=== PATIENT | male | born 1955 | race Caucasian/White ===

== ENCOUNTER 2016-10-03 08:06 | Emergency (ER) | payer BC ==
[2016-10-03 08:33] VITALS: BP 120/75
--- NOTE | 2016-10-03 08:53 | UC ---
Skin Complaint HPI - HPI Summary HPI Summary: left hand bee sting last night. Increased sweelling today this morning. no systemic symptoms. - History of Current Complaint Chief Complaint: UCSkin Time Seen by Provider: 10/03/16 08:41 Stated Complaint: LEFT HAND BEE STING Hx Obtained From: Patient Onset/Duration: Gradual Onset Skin Exposure Onset/Duration: Hours Ago Timing: Constant Onset Severity: Mild Current Severity: Moderate Location: Discrete Aggravating: Nothing Alleviating: Nothing Associated Signs & Symptoms: Positive: Joint Swelling - Allergy/Home Medications Allergies/Adverse Reactions: Allergies Allergy/AdvReac Type Severity Reaction Status Date / Time No Known Allergies Allergy Verified 10/03/16 08:13 Home Medications: Home Medications NK [No Home Medications Reported] 10/03/16 [History Confirmed 10/03/16] Review of Systems Skin: Rash All Other Systems Reviewed And Are Negative: Yes PMH/Surg Hx/FS Hx/Imm Hx Previously Healthy: Yes - Surgical History Surgical History: Yes Surgery Procedure, Year, and Place: TONSILLECTOMY - Family History Known Family History: Positive: Other - no related bee sting history. - Social History Occupation: Employed Full-time Lives: With Family Alcohol Use: Weekly Substance Use Type: None Smoking Status (MU): Never Smoked Tobacco Physical Exam Triage Information Reviewed: Yes Appearance: Well-Appearing, No Pain Distress, Well-Nourished Vital Signs: Initial Vital Signs Temp 97.8 F 10/03/16 08:13 Pulse 59 10/03/16 08:13 Resp 16 10/03/16 08:13 BP 120/75 10/03/16 08:13 Pulse Ox 99 10/03/16 08:13 Vital Signs Reviewed: Yes Eye Exam: Normal ENT Exam: Normal Neck exam: Normal Respiratory Exam: Normal Cardiovascular Exam: Normal Abdominal Exam: Normal Musculoskeletal Exam: Normal Neurological Exam: Normal Psychological Exam: Normal Skin Exam: Other - left hand diffuse swelling. Course/Dx - Course Course Of Treatment: localized bee sting allergy. benadryl ice and elevation. - Diagnoses Provider Diagnoses: bee sting with swelling. left hand. Discharge - Discharge Plan Condition: Good Disposition: HOME Patient Education Materials: Insect Bite or Sting (ED) Referrals: Luis Garcia DO [Primary Care Provider] - If Needed
== END 2016-10-03 08:58 | disposition home or self-care (01) ==
LOC: UCCORT 08:06
DX: T63.441A Toxic effect of venom of bees, accidental (unintentional), initial encounter (principal); M79.89 Other specified soft tissue disorders; Y92.9 Unspecified place or not applicable
CPT/HCPCS: 99202; G0463

== ENCOUNTER 2019-03-28 12:46 | Emergency (ER) | payer BC ==
[2019-03-28 13:33] VITALS: BP 124/68
--- NOTE | 2019-03-28 13:43 | UC ---
Dizzy HPI HPI Summary: Pt presents with c/o gradual onset of lightheadedness, dizziness, X 2 weeks. Pt reports that he had a URI just prior ot onset of current c/o. Pt dneeis injury, LINARES, one sided weakness or hx of HTN or stroke. - History Of Current Complaint Chief Complaint: UCDizziness Stated Complaint: DIZZINESS (RECENT HEAD COLD) Time Seen by Provider: 03/28/19 13:34 Hx Obtained From: Patient Onset/Duration: Gradual Onset, Lasting Weeks, Still Present Timing: Intermittent Episode Lasting Severity Initially: Mild Severity Currently: Mild Pain Intensity: 0 Character: Lightheaded, Dizzy Aggravating Factor(s): Nothing Alleviating Factor(s): Nothing Associated Signs And Symptoms: Positive: Negative - Risk Factors Cardiac Risk Factors: Negative CVA Risk Factor: Negative - Allergies/Home Medications Allergies/Adverse Reactions: Allergies Allergy/AdvReac Type Severity Reaction Status Date / Time No Known Allergies Allergy Verified 03/28/19 13:28 Home Medications: Home Medications Ibuprofen TAB* [Advil TAB*] 200 mg PO Q6H PRN 03/28/19 [History Confirmed ] PMH/Surg Hx/FS Hx/Imm Hx Previously Healthy: Yes - Surgical History Surgical History: Yes Surgery Procedure, Year, and Place: TONSILLECTOMY - Family History Known Family History: Positive: Cardiac Disease, Other - no related bee sting history. - Social History Occupation: Employed Full-time Alcohol Use: Weekly Substance Use Type: None Smoking Status (MU): Current Some Day Smoker Type: Cigars Amount Used/How Often: 1 monthly Have You Smoked in the Last Year: No - Immunization History Vaccination Up to Date: No Review of Systems All Other Systems Reviewed And Are Negative: Yes Constitutional: Positive: Negative Skin: Positive: Negative Eyes: Positive: Negative ENT: Positive: Negative Respiratory: Positive: Negative Cardiovascular: Positive: Negative Gastrointestinal: Positive: Negative Genitourinary: Positive: Negative Motor: Positive: Negative Neurovascular: Positive: Negative Musculoskeletal: Positive: Negative Neurological: Positive: Headache Is Patient Immunocompromised?: No Physical Exam Triage Information Reviewed: Yes Appearance: Well-Appearing Vital Signs: Initial Vital Signs Temp 98 F 03/28/19 13:29 Pulse 63 03/28/19 13:29 Resp 16 03/28/19 13:29 BP 124/68 03/28/19 13:29 Pulse Ox 100 03/28/19 13:29 Vital Signs Reviewed: Yes Eye Exam: Normal ENT: Positive: Normal ENT inspection Dental Exam: Normal Neck exam: Normal Respiratory Exam: Normal Cardiovascular Exam: Normal Musculoskeletal Exam: Normal Neurological Exam: Normal Psychological Exam: Normal Skin Exam: Normal Dizzy Course/Dx - Course Course Of Treatment: Pt denies any significant LINARES or pain. Pt denied any neurological deficits. Pt was instructed to f/u as soon as possible with PCP - Differential Dx/Diagnosis Differential Diagnosis/HQI/PQRI: Benign Paroxysmal Positional Vertigo, Labyrinthitis, Meniere's Disease, Transient Ischemic Attack Provider Diagnosis: Post viral syndrome, Lightheadedness Discharge ED - Sign-Out/Discharge Documenting (check all that apply): Patient Departure All imaging exams completed and their final reports reviewed: No Studies - Discharge Plan Condition: Stable Disposition: HOME Prescriptions: Guaifenesin/Pseudoephedrne HCl [Mucinex D ER 600-60 mg Tablet] 1 each PO Q12H # 10 tab.er.12h Patient Education Materials: Viral Syndrome (ED), Lightheadedness (ED) Referrals: Addison Payne MD [Primary Care Provider] - As Soon As Possible - Billing Disposition and Condition Condition: STABLE Disposition: Home
== END 2019-03-28 13:48 | disposition home or self-care (01) ==
LOC: UCCORT 12:46
DX: B34.9 Viral infection, unspecified (principal); R42 Dizziness and giddiness; R51 Headache; F17.290 Nicotine dependence, other tobacco product, uncomplicated
CPT/HCPCS: 99212; G0463